=== PATIENT | female | born 1980 | race Caucasian/White ===

== ENCOUNTER 2021-06-06 07:58 | Emergency (ER) | payer OTHER ==
[~2021-06-06 07:58] MED LIST: PEPCID AC20 MG PO; TRAMADOL HCL50 MG PO; ZOFRAN4 MG PO
[2021-06-06] MEDS ORDERED: CIPRODEX OTIC7.5 M1 EARRT (09:08)
[2021-06-06] MEDS ORDERED: AUGMENTIN 875-1 EACH PO (09:08)
== END 2021-06-06 09:40 | disposition home or self-care (01) ==
LOC: FER 07:58
DX: U07.1 COVID-19 (principal); J01.90 Acute sinusitis, unspecified; B96.89 Other specified bacterial agents as the cause of diseases classified elsewhere; H92.01 Otalgia, right ear; F17.210 Nicotine dependence, cigarettes, uncomplicated; Z90.09 Acquired absence of other part of head and neck
CPT/HCPCS: 99284

== ENCOUNTER 2021-06-08 14:51 | Emergency (ER) | payer OTHER ==
[~2021-06-08 14:51] MED LIST changes: +AUGMENTIN 875-1 EACH PO; +CIPRODEX OTIC7.5 M1 EARRT
[2021-06-08 17:00] LABS: BASOPHIL 0.5 % (0-2); EOSINOPHIL 1.1 % (0-5); HCT 43.9 % (37.0-47.0); HGB 14.9 g/dl (12.5-16.0); LYMPHOCYTE 30.8 % (15-48); MCH 32.5 pg (25.0-31.0); MCHC 33.9 g/dL (32.0-36.0); MCV 95.9 fL (78.0-100.0); MONOCYTE 12.1 % (0-12); MPV 9.1 fL (6.0-9.5); NEUTROPHIL 55.3 % (41-80); NRBC 0; PLT 182 K/uL (150-400); RBC 4.58 M/uL (4.20-5.40); RDW 12.6 % (11.5-14.0); WBC 5.5 K/uL (4.0-10.5)
[2021-06-08 17:25] LABS: ALBUMIN 3.4 g/dL (3.4-5.0); ALKALINE PHOSHATASE 57 U/L (46-116); ALT 36 U/L (14-59); AST 27 U/L (15-37); BILIRUBIN - TOTAL 0.2 mg/dL (0.2-1.0); BUN 12 mg/dL (7-18); BUN/CREAT RATIO (CALC) 16.2 RATIO; C-REACTIVE PROTEIN <0.20 mg/dL (<=0.90); CHLORIDE 104 mmol/L (98-107); CO2 (BICARBONATE) 31 mmol/L (21-32); CREATININE 0.74 mg/dL (0.51-0.95); GLOBULIN (CALCULATION) 3.5 g/dL; GLUCOSE 100 mg/dL (74-106); POTASSIUM 4.6 mmol/L (3.5-5.1); TOTAL PROTEIN 6.9 g/dL (6.4-8.2)
[2021-06-08] MEDS ORDERED: ZPAK PO (19:13)
[2021-06-08] MEDS ORDERED: MEDROL 4MG DOSEP4 MG PO (19:13)
== END 2021-06-08 19:40 | disposition home or self-care (01) ==
LOC: FER 14:51
PROVIDERS: Emergency Medicine Emergency Medical Services
DX: U07.1 COVID-19 (principal); J12.82 Pneumonia due to coronavirus disease 2019; F17.210 Nicotine dependence, cigarettes, uncomplicated
CPT/HCPCS: 36415; 36600; 71045; 71275; 80053; 82803; 84484; 84703; 85025; 85379; 86140; 93005; 94664; 94762; J1885; J7030; Q9967

== ENCOUNTER 2022-04-21 23:35 | Emergency (ER) | payer OTHER ==
[~2022-04-21 23:35] MED LIST changes: +MEDROL 4MG DOSEP4 MG PO; +ZPAK PO
[2022-04-22 01:36] LABS: BASOPHIL 0.8 % (0-2); EOSINOPHIL 1.2 % (0-5); HCT 42.6 % (37.0-47.0); HGB 14.5 g/dl (12.5-16.0); LYMPHOCYTE 24.4 % (15-48); MCH 32.6 pg (25.0-31.0); MCV 95.7 fL (78.0-100.0); MONOCYTE 7.9 % (0-12); MPV 9.2 fL (6.0-9.5); NEUTROPHIL 65.4 % (41-80); NRBC 0; PLT 402 K/uL (150-400); RBC 4.45 M/uL (4.20-5.40); RDW 12.6 % (11.5-14.0); WBC 13.8 K/uL (4.0-10.5)
[2022-04-22 01:48] LABS: BILIRUBIN NEGATIVE (NEGATIVE); BLOOD NEGATIVE Ery/uL (NEGATIVE); CLARITY CLEAR (CLEAR); COLOR YELLOW (YELLOW); GLUCOSE (U) NORMAL (NORMAL); LEUKOCYTES NEGATIVE Leu/uL (NEGATIVE); NITRITE NEGATIVE (NEGATIVE); PROTEIN NEGATIVE (NEGATIVE); UROBILINOGEN 0.2 mg/dL (0.2-1.0)
[2022-04-22 01:49] LABS: ALBUMIN 3.4 g/dL (3.4-5.0); BILIRUBIN - TOTAL 0.2 mg/dL (0.2-1.0); BUN/CREAT RATIO (CALC) 17.2 RATIO; CREATININE 0.64 mg/dL (0.51-0.95); GLOBULIN (CALCULATION) 3.3 g/dL; POTASSIUM 3.6 mmol/L (3.5-5.1); TOTAL PROTEIN 6.7 g/dL (6.4-8.2)
[2022-04-22] MEDS ORDERED: ONDANSETRON ODT4 MG PO (02:30)
[2022-04-22] MEDS ORDERED: PHENERGAN25 M1 PO (02:30)
== END 2022-04-22 03:13 | disposition home or self-care (01) ==
LOC: FER 23:35
PROVIDERS: Internal Medicine
DX: K52.9 Noninfective gastroenteritis and colitis, unspecified (principal); F17.210 Nicotine dependence, cigarettes, uncomplicated; Z28.310 Unvaccinated for COVID-19
CPT/HCPCS: 36415; 80053; 81003; 83690; 84145; 85025; J2405; J7120

== ENCOUNTER 2022-07-04 10:46 | Emergency (ER) | payer OTHER ==
[~2022-07-04 10:46] MED LIST changes: +ONDANSETRON ODT4 MG PO; +PHENERGAN25 M1 PO
[2022-07-04 12:57] LABS: BASOPHIL 0.9 % (0-2); EOSINOPHIL 1.6 % (0-5); HCT 40.9 % (37.0-47.0); HGB 14.1 g/dl (12.5-16.0); LYMPHOCYTE 32.4 % (15-48); MCH 33.3 pg (25.0-31.0); MCHC 34.5 g/dL (32.0-36.0); MCV 96.7 fL (78.0-100.0); MONOCYTE 13.9 % (0-12); MPV 9.1 fL (6.0-9.5); NEUTROPHIL 50.9 % (41-80); NRBC 0; PLT 285 K/uL (150-400); RBC 4.23 M/uL (4.20-5.40); RDW 12.8 % (11.5-14.0); WBC 7.6 K/uL (4.0-10.5)
[2022-07-04 13:31] LABS: LACTIC ACID 0.7 mmol/L (0.4-1.9)
[2022-07-04 13:37] LABS: ALBUMIN 3.2 g/dL (3.4-5.0); BILIRUBIN - TOTAL 0.1 mg/dL (0.2-1.0); CREATININE 0.69 mg/dL (0.51-0.95); GLOBULIN (CALCULATION) 3.2 g/dL; POTASSIUM 3.5 mmol/L (3.5-5.1); TOTAL PROTEIN 6.4 g/dL (6.4-8.2)
[2022-07-04 14:21] LABS: BILIRUBIN NEGATIVE (NEGATIVE); BLOOD NEGATIVE Ery/uL (NEGATIVE); CLARITY CLEAR (CLEAR); COLOR YELLOW (YELLOW); GLUCOSE (U) NORMAL (NORMAL); LEUKOCYTES 1+ Leu/uL (NEGATIVE); NITRITE NEGATIVE (NEGATIVE); PROTEIN NEGATIVE (NEGATIVE); SPECIFIC GRAVITY 1.015 (1.001-1.030)
[2022-07-04 14:30] LABS: BACTERIA TRACE
[2022-07-04] MEDS ORDERED: ONDANSETRON HCL4 MG PO (15:43)
[2022-07-04] MEDS ORDERED: BENTYL10 MG PO (15:43)
== END 2022-07-04 16:18 | disposition home or self-care (01) ==
LOC: FER 10:46
PROVIDERS: Nurse Practitioner Family
DX: K29.00 Acute gastritis without bleeding (principal); N83.201 Unspecified ovarian cyst, right side; F17.210 Nicotine dependence, cigarettes, uncomplicated; Z88.1 Allergy status to other antibiotic agents; Z28.310 Unvaccinated for COVID-19
CPT/HCPCS: 36415; 80053; 81001; 82150; 83605; 83690; 84145; 85025; 87088; J7030; Q9967